=== PATIENT | female | born 1965 | race Caucasian/White ===

== ENCOUNTER 2020-12-13 20:36 | Emergency (ER) | payer OTHER ==
--- OUTSIDE RECORDS SUMMARY | 2020-12-13 20:38 | XMS REPORT | Continuity of Care Document ---
:1965 Author Organization [facility] t Address [address] [place] [address] Care Team Providers Name Role Phone Doctor Unassigned, Name Attending Clinician Unavailable Natan Hernandez MD Attending Clinician Bharath Deutsch MD Attending Clinician Problems This patient has no known problems. Allergies, Adverse Reactions, Alerts This patient has no known allergies or adverse reactions. Medications This patient has no known medications. Procedures This patient has no known procedures. Encounters Start End Encounter Admission Attending Care Care Encounter Source Date/Time Date/Time Type Type Clinicians Facility Department ID 2020-09-12 2020-09-12 Orders Doctor SIMRAN [id number] 00:00:00 00:00:00 Only UnassignedREZA [id number] Klein [facility] [id number] 2020-09-03 2020-09-03 Office ROMÁN Hernandez [id number] 09:35:04 10:05:04 Visit [facility] [id number] Natan Hernandez [id number] [place] [id number] nal [id number] Office [address] 2020-07-15 2020-07-15 Office Patria CISNEROS [id number] 13:58:35 15:30:53 Visit u, Yolis AMBULATOR [id number] Sinha Y [id number] 2020-03-17 2020-03-17 Office [facility] [id number] 11:46:10 15:31:57 Visit u, Yolis AMBULATOR [id number] Sinha Y [id number] 2019-07-27 2019-07-27 Office [facility] [id number] 10:55:22 11:25:22 Visit u, Yolis AMBULATOR [id number] Sinha Y [phone] [id number] Results This patient has no known results.
[2020-12-13 21:43] LABS: Urine Blood NEGATIVE (NEG); Urine Glucose NEGATIVE (NEG); Urine Protein NEGATIVE (NEG); Urine Specific Gravity 1.025 (1.005-1.030)
[2020-12-13] MEDS ORDERED: HYDROCODONE/APAP 10/325 TAB ONE (22:11)
--- NOTE | 2020-12-13 22:46 | ER ---
Nurse's Notes [facility] Name: Lis Tipton Age: 55 yrs Sex: Female : 1965 Arrival Date: 12/13/2020 Time: 20:37 Bed 14 Private MD: Diagnosis: Low back pain Presentation: 12/13 20:48 Chief complaint: Patient states: L back pain for 2 weeks, got severe tonight. + nausea. ll1 Believes its a kidney stone vs. infection. Coronavirus screen: Client denies travel out of the [place] in the last 14 days. At this time, the client does not indicate any symptoms associated with coronavirus-19. Ebola Screen: Patient denies travel to an Ebola-affected area in the 21 days before illness onset. Initial Sepsis Screen: Does the patient meet any 2 criteria? HR > 90 bpm. No. Patient's initial sepsis screen is negative. Does the patient have a suspected source of infection? Yes: Dysuria/Frequency/Urgency/UTI. Risk Assessment: Do you want to hurt yourself or someone else? Patient reports no desire to harm self or others. Onset of symptoms was November 29, 2020. 20:48 Method Of Arrival: Wheelchair ll1 20:48 Acuity: LUISA 3 ll1 Historical: - Allergies: 20:50 Demerol; ll1 20:50 Sulfa (Sulfonamide Antibiotics); ll1 - PMHx: 20:50 Kidney stones; Hypertension; Rheumatoid Arthritis; ll1 - PSHx: 20:50 Hysterectomy; Cholecystectomy; kidney surgery after rupture.; ll1 - Immunization history:: Flu vaccine is up to date. - Social history:: Smoking status: Patient denies any tobacco usage or history of. Screenin:08 Abuse screen: Denies threats or abuse. Nutritional screening: No deficits noted. vg1 Tuberculosis screening: No symptoms or risk factors identified. Fall Risk No fall in past 12 months (0 pts). No secondary diagnosis (0 pts). No IV (0 pts). Ambulatory Aid- None/Bed Rest/Nurse Assist (0 pts). Gait- Normal/Bed Rest/Wheelchair (0 pts) Mental Status- Oriented to own ability (0 pts). Total Yoder Fall Scale indicates No Risk (0-24 pts). Assessment: 21:00 General: Appears in no apparent distress. uncomfortable, Behavior is calm, cooperative, vg1 crying. Pain: Complains of pain in Left flank Pain currently is 10 out of 10 on a pain scale. Quality of pain is described as sharp, Pain began has been hurting for about two weeks and today the pain became worse Noted to be crying, grimacing. Neuro: Level of Consciousness is awake, alert, obeys commands, Oriented to person, place, time, situation. Cardiovascular: Patient's skin is warm and dry. Respiratory: Airway is patent Respiratory effort is even, unlabored, Respiratory pattern is regular, symmetrical. GI: Bowel sounds present X 4 quads. Abd is soft X 4 quads Abd is non tender. : No signs and/or symptoms were reported regarding the genitourinary system. EENT: No signs and/or symptoms were reported regarding the EENT system. Derm: Skin is intact, is healthy with good turgor. Musculoskeletal: Circulation, motion, and sensation intact. 21:00 Reassessment: Patient stated had Right kidney rupture about 3 years ago. vg1 22:01 Reassessment: Patient appears in no apparent distress at this time. Patient and/or vg1 family updated on plan of care and expected duration. Pain level reassessed. Patient is alert, oriented x 3, equal unlabored respirations, skin warm/dry/pink. Patient states feeling better. Vital Signs: 20:48 BP 172 / 103; Pulse 92; Resp 18; Temp 98.6; Pulse Ox 98% ; Weight 68.04 kg; Height 5 ll1 ft. 1 in. (154.94 cm); Pain 10/10; 21:07 BP 140 / 102; Pulse 90; Resp 18; Pulse Ox 97% on R/A; vg1 22:01 BP 126 / 82; Pulse 80; Resp 16; Pulse Ox 98% on R/A; vg1 20:48 Body Mass Index 28.34 (68.04 kg, 154.94 cm) ll1 ED Course: 20:37 Patient arrived in ED. cl3 20:49 Triage completed. ll1 20:49 Arm band placed on Patient placed in an exam room, on a stretcher. ll1 20:59 Jaci Kaur, RN is Primary Nurse. vg1 21:08 Patient has correct armband on for positive identification. Bed in low position. Call vg1 light in reach. 21:12 Kyara Kern FNP-C is [facility]. kb 21:12 Abdi Ruvalcaba MD is Attending Physician. kb 21:48 CT Stone Protocol In Process Unspecified. EDMS 22:57 No provider procedures requiring assistance completed. Patient did not have IV access vg1 during this emergency room visit. Administered Medications: 22:01 Drug: [place] 10 mg-325 mg 1 tabs Route: PO; vg1 22:56 Follow up: Response: Pain is unchanged, physician notified vg1 Outcome: 22:46 Discharge ordered by . kb 22:57 Discharged to home ambulatory. vg1 22:57 Condition: stable 22:57 Discharge instructions given to patient, Instructed on discharge instructions, follow up and referral plans. medication usage, Demonstrated understanding of instructions, follow-up care, medications, Prescriptions given X 2. 22:58 Patient left the ED. vg1 Signatures: Dispatcher [employer] EDND Kyara Kern FNP-C FNP-Ckb Lewis, Charde cl3 Jaci Kaur RN RN vg1 Yamila King RN RN ll1
--- NOTE | 2020-12-13 22:46 | EDPHYS ---
Physician Documentation [facility] Name: Lis Tipton Age: 55 yrs Sex: Female : 1965 Arrival Date: 12/13/2020 Time: 20:37 Bed 14 Private MD: RANDEE Physician Abdi Ruvalcaba HPI: 12/13 22:18 This 55 yrs old Female presents to ER via Wheelchair with complaints of kb Possible Kidney Stone. 22:18 The patient presents with pain that is acute, with no known mechanism of injury. The kb symptoms are located in the left low back. The pain does not radiate. The problem was sustained from unknown cause. Onset: The symptoms/episode began/occurred 2 week(s) ago. Modifying factors: The patient symptoms are alleviated by nothing, the patient symptoms are aggravated by any movement. Associated signs and symptoms: The patient has no apparent associated signs or symptoms. Severity of symptoms: At their worst the symptoms were moderate, in the emergency department the symptoms are unchanged. The patient has not experienced similar symptoms in the past. The patient has not recently seen a physician. Historical: - Allergies: 20:50 Demerol; ll1 20:50 Sulfa (Sulfonamide Antibiotics); ll1 - PMHx: 20:50 Kidney stones; Hypertension; Rheumatoid Arthritis; ll1 - PSHx: 20:50 Hysterectomy; Cholecystectomy; kidney surgery after rupture.; ll1 - Immunization history:: Flu vaccine is up to date. - Social history:: Smoking status: Patient denies any tobacco usage or history of. ROS: 22:16 Constitutional: Negative for fever, chills, and weight loss, Cardiovascular: Negative kb for chest pain, palpitations, and edema, Respiratory: Negative for shortness of breath, cough, wheezing, and pleuritic chest pain, Abdomen/GI: Negative for abdominal pain, nausea, vomiting, diarrhea, and constipation, : Negative for injury, bleeding, discharge, and swelling, MS/Extremity: Negative for injury and deformity, Skin: Negative for injury, rash, and discoloration, Neuro: Negative for headache, weakness, numbness, tingling, and seizure. 22:16 Back: Positive for pain at rest, pain with movement, of the left low back. Exam: 22:16 Constitutional: This is a well developed, well nourished patient who is awake, alert, kb and in no acute distress. Head/Face: Normocephalic, atraumatic. Chest/axilla: Normal chest wall appearance and motion. Nontender with no deformity. No lesions are appreciated. Cardiovascular: Regular rate and rhythm with a normal S1 and S2. No gallops, murmurs, or rubs. Normal PMI, no JVD. No pulse deficits. Respiratory: Lungs have equal breath sounds bilaterally, clear to auscultation and percussion. No rales, rhonchi or wheezes noted. No increased work of breathing, no retractions or nasal flaring. Abdomen/GI: Soft, non-tender, with normal bowel sounds. No distension or tympany. No guarding or rebound. No evidence of tenderness throughout. Skin: Warm, dry with normal turgor. Normal color with no rashes, no lesions, and no evidence of cellulitis. MS/ Extremity: Pulses equal, no cyanosis. Neurovascular intact. Full, normal range of motion. Neuro: Awake and alert, GCS 15, oriented to person, place, time, and situation. Cranial nerves II-XII grossly intact. Motor strength 5/5 in all extremities. Sensory grossly intact. Cerebellar exam normal. Normal gait. 22:16 Back: pain, that is moderate, of the left low back, ROM is painful, normal spinal alignment noted, CVA tenderness, is absent. Vital Signs: 20:48 BP 172 / 103; Pulse 92; Resp 18; Temp 98.6; Pulse Ox 98% ; Weight 68.04 kg; Height 5 ll1 ft. 1 in. (154.94 cm); Pain 10/10; 21:07 BP 140 / 102; Pulse 90; Resp 18; Pulse Ox 97% on R/A; vg1 22:01 BP 126 / 82; Pulse 80; Resp 16; Pulse Ox 98% on R/A; vg1 20:48 Body Mass Index 28.34 (68.04 kg, 154.94 cm) ll1 MDM: 21:13 Patient medically screened. kb 22:16 Data reviewed: vital signs, nurses notes. Data interpreted: Pulse oximetry: on room air kb is 98 %. Interpretation: normal. 22:45 Counseling: I had a detailed discussion with the patient and/or guardian regarding: the kb historical points, exam findings, and any diagnostic results supporting the discharge/admit diagnosis, lab results, radiology results, the need for outpatient follow up, a family practitioner, to return to the emergency department if symptoms worsen or persist or if there are any questions or concerns that arise at home. 12/13 21:42 Order name: Urine Dipstick--Ancillary (enter results); Complete Time: 21:43 kb 12/13 21:12 Order name: Urine Dipstick-Ancillary (obtain specimen); Complete Time: 22:02 kb 12/13 21:12 Order name: CT Stone Protocol kb Administered Medications: 22:01 Drug: [place] 10 mg-325 mg 1 tabs Route: PO; vg1 22:56 Follow up: Response: Pain is unchanged, physician notified vg1 Disposition: 12/14 19:53 Co-signature as Attending Physician, Abdi Ruvalcaba MD I agree with the assessment and ramírez plan of care. Disposition: 12/13/20 22:46 Discharged to Home. Impression: Low back pain. - Condition is Stable. - Discharge Instructions: Back Pain, Adult, [id number]. - Prescriptions for Cyclobenzaprine 10 mg Oral Tablet - take 1 tablet by ORAL route every 8 hours As needed; 21 tablet. Diclofenac Sodium 75 mg Oral Tablet, Delayed Release (E.C.) - take 1 tablet by ORAL route 2 times per day As needed; 30 tablet. - Medication Reconciliation Form, Thank You Letter, Antibiotic Education, Prescription Opioid Use form. - Follow up: Emergency Department; When: As needed; Reason: Worsening of condition. Follow up: Private Physician; When: 2 - 3 days; Reason: Recheck today's complaints, Continuance of care, Re-evaluation by your physician. Signatures: Dispatcher [employer] Kyara Marie, TERRY-C Abdi Raymond MD MD cha Garcia, Victoria, RN RN vg1 Yamila King RN RN ll1 Corrections: (The following items were deleted from the chart) 12/13 22:58 22:46 12/13/2020 22:46 Discharged to Home. Impression: Low back pain. Condition is vg1 Stable. Forms are Medication Reconciliation Form, Thank You Letter, Antibiotic Education, Prescription Opioid Use. Follow up: Emergency Department; When: As needed; Reason: Worsening of condition. Follow up: Private Physician; When: 2 - 3 days; Reason: Recheck today's complaints, Continuance of care, Re-evaluation by your physician. kb
[2020-12-13 23:02] VITALS: TEMP 98.6
[2020-12-13 23:04] VITALS: BP 126/82; O2SAT 98
--- NOTE | 2020-12-15 10:02 | RAD REPORT ---
EXAM DESCRIPTION: CT - Stone Protocol - 12/14/2020 3:26 am CLINICAL HISTORY: 55-year-old female with LEFT low back and flank pain. COMPARISON: 09/27/2017. TECHNIQUE: CT of the abdomen and pelvis was performed without intravenous or oral contrast. Multipla ministerio reformatted images were provided. This exam was performed according to our departmental dose opti mization program which includes use of automated exposure control, adjustment of the mA and/or kV acc ording to patient size and/or use of iterative reconstruction technique. FINDINGS: Evaluation of solid organ pathology is limited secondary to lack of intravenous contrast. Within these limitations, the following observations are made. Chest: Evaluation through the lung bases reveals no focal opacity, pleural effusion or pneumothorax. Heart size is within normal limits. No pericardial effusion. Abdomen and pelvis: The liver, pancreas, spleen, bilateral kidneys and bilateral adrenal glands are w ithin normal limits. Punctate foci of calcification present within the bilateral renal pelvis compati ble with nonobstructing calculi. Additionally, there appears to be diffusely increased density of the medullary pyramids raising the concern for medullary nephrocalcinosis. Diffuse hepatic steatosis. Borderline hepatomegaly measuring 17 cm. Surgical clips at the level of the gallbladder fossa status post cholecystectomy. The vessels are normal in caliber. No abdominopelvic lymph nodes are noted to be pathologically enlarged by CT measurement criteria. The bowel is within normal limits without abnormal bowel wall thickness or bowel dilation. Diverticul ar disease without findings to suggest diverticulitis. No free air. No free abdominopelvic fluid collections. The appendix is not visualized. Thickened appearance of the bladder wall may be secondary to incomplete distention, however can be se en in the setting of infectious or inflammatory process. Please correlate with laboratory values. The osseous structures are within normal limits. IMPRESSION: 1. No specific acute intra-abdominal findings are noted to suggest etiology of the patie nt's abdominal pain. 2. Diffuse hepatic steatosis and hepatomegaly measuring 17 cm. 3. Punctate foci of nonobstructing ossification within the bilateral renal collecting system compatib le with nonobstructing calculi. 4. Diverticular disease without findings to suggest diverticulitis. 5. Thickened appearance of the bladder wall may be secondary to incomplete distention, however can be seen in the setting of infectious or inflammatory process. Please correlate with laboratory values. Electronically signed by: Miriam Bhatt MD 12/13/2020 10:19 PM STUDIO ARTIST Due to temporary technical issues with the PACS/Fluency reporting system, reports are being signed by the in house radiologist without review as a courtesy to ensure prompt reporting. The interpreting r adiologist is fully responsible for the content of the report.
== END 2020-12-13 22:58 | disposition home or self-care (01) ==
LOC: ER 20:36
DX: M54.5 Low back pain (principal); I10 Essential (primary) hypertension; M06.9 Rheumatoid arthritis, unspecified
CPT/HCPCS: 74176; 76377; 81003; 99283